=== PATIENT | female | born 1995 | race Two or more races ===

== ENCOUNTER 2023-01-19 16:35 | Emergency (ER) | payer MEDICAID ==
[~2023-01-19] VITALS: Ht 154.9 cm; Wt 59.0 kg
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
[2023-01-19] MEDS ORDERED: KETOROLAC TROMETHAMINE INJ 60 MG/2 ML VIAL IM ONE (17:00)
[2023-01-19] MEDS ORDERED: CYCL10TA9 PO (17:42)
[2023-01-19] MEDS ORDERED: NAPR500T6 PO (17:42)
--- NOTE | 2023-01-19 17:55 | NUR ---
waiting for test to give toradol , pt states that she is not sure if she is .
[2023-01-19] MEDS ORDERED: KETOROLAC TROMETHAMINE INJ 30 MG/ML VIAL ONE (18:46)
--- NOTE | 2023-01-19 18:55 | NUR ---
Patient discharged to home in stable condition. Written and verbal after care instructions given. Patient verbalizes understanding of instruction.
[2023-01-19 18:57] VITALS: BP 126/79
== END 2023-01-19 18:57 | disposition home or self-care (01) ==
LOC: ER 16:47
DX: S29.012A Strain of muscle and tendon of back wall of thorax, initial encounter (principal); Z79.899 Other long term (current) drug therapy; V49.9XXA Car occupant (driver) (passenger) injured in unspecified traffic accident, initial encounter; Y93.89 Activity, other specified; Y92.89 Other specified places as the place of occurrence of the external cause; Y99.8 Other external cause status
CPT/HCPCS: 99284; 96372; 72074; 84703; J1885